=== PATIENT | male | born 1970 | race Caucasian/White ===

== ENCOUNTER 2020-02-05 07:49 | Inpatient (IN) | payer OTHER ==
[~2020-02-05] VITALS: Ht 170.2 cm; Wt 78.9 kg
--- NOTE | 2020-02-05 07:49 | NUR ---
PT BIB SELF C/O SI "RUN THROUGH TRAFFIC." PT IS AAOX4, NOT IN RESPIRATORY DISTRESS, V/S STABLE, KEPT RESTED AND COMFORTABLE. SITTER AT BEDSIDE. WILL CONTINUE TO MONITOR.
--- NOTE | 2020-02-05 08:00 | NUR ---
SEEN AND EXAMINED BY .
--- NOTE | 2020-02-05 08:03 | NUR ---
URINE SPECIMEN COLLECTED AND SENT TO LAB.
--- NOTE | 2020-02-05 08:10 | NUR ---
ER PHLEB AT BEDSIDE FOR BLOOD DRAW.
[2020-02-05 08:26] LABS: BASOPHILS % (AUTO) 0.6 % (0.0-2.0); EOSINOPHILS % (AUTO) 1.7 % (0.0-6.0); HEMATOCRIT 43 % (39-51); HEMOGLOBIN 14.9 g/dL (13.5-17.5); LYMPHOCYTES # (AUTO) 1.2 /CMM (0.8-4.8); LYMPHOCYTES % (AUTO) 29.5 % (20.0-44.0); MEAN CORPUSCULAR HGB CONC 34 g/dl (31.0-36.0); MEAN CORPUSCULAR VOLUME 94 fL (80-96); MONOCYTES # (AUTO) 0.2 /CMM (0.1-1.30); MONOCYTES % (AUTO) 5.3 % (2.0-12.0); NEUTROPHILS # (AUTO) 2.6 /CMM (1.8-8.9); NEUTROPHILS % (AUTO) 62.9 % (43.0-81.0); PLATELET COUNT (AUTO) 201 /CMM (150-450); RED BLOOD CELL COUNT(AUTO) 4.62 MIL/uL (4.5-6.0); WHITE BLOOD COUNT (AUTO) 4.2 K/uL (4.3-11.0)
[2020-02-05 08:33] LABS: CALCIUM, SERUM 8.5 mg/dL (8.5-10.1); CARBON DIOXIDE 30 mmol/L (21-32); CHLORIDE 105 mmol/L (98-107); CREATININE 0.7 mg/dL (0.6-1.3); GLUCOSE 86 mg/dL (74-106); POTASSIUM 3.9 mmol/L (3.5-5.1); SODIUM SERUM 140 mmol/L (136-145); UREA NITROGEN, BLOOD 12 mg/dL (7-18)
[2020-02-05 08:38] LABS: ALANINE AMINOTRANSFERASE 30 U/L (12-78); ALBUMIN 3.8 g/dL (3.4-5.0); ALCOHOL, BLOOD < 3 mg/dL (0-0); ALKALINE PHOSPHATASE 61 U/L (46-116); ASPARTATE AMINOTRANSFERASE 22 U/L (15-37); BILIRUBIN,DIRECT 0.2 mg/dL (0.0-0.2); BILIRUBIN,TOTAL 0.9 mg/dL (0.2-1.0); TOTAL PROTEIN, SERUM 6.8 g/dL (6.4-8.2)
[2020-02-05 08:40] LABS: ACETAMINOPHEN < 2 ug/ml (10-30); SALICYLATE < 2.8 mg/dL (2.8-20.0)
--- NOTE | 2020-02-05 08:49 | NUR ---
Riya WISE called for PET eval
--- NOTE | 2020-02-05 08:51 | NUR ---
COVID SWAB OBTAINED AND SENT TO LAB.
[2020-02-05 09:02] LABS: APPEARANCE,URINE CLEAR (CLEAR); BILIRUBIN,URINE NEGATIVE (NEGATIVE); BLOOD, URINE NEGATIVE Ery/uL (NEGATIVE); COLOR,URINE YELLOW (YELLOW); KETONES,URINE NEGATIVE (NEGATIVE); LEUKOCYTE ESTERASE ,URINE NEGATIVE (NEGATIVE); NITRITE, URINE NEGATIVE (NEGATIVE); PROTEIN,URINE NEGATIVE (NEGATIVE); UGLUCOSE NEGATIVE (NEGATIVE); UROBILINOGEN,URINE 0.2 EU/dL (0.2)
--- NOTE | 2020-02-05 09:04 | NUR ---
NOHELIA ETA 1 HOUR
--- NOTE | 2020-02-05 09:55 | NUR ---
FOOD TRAY PROVIDED.
--- NOTE | 2020-02-05 10:08 | NUR ---
NOHELIA WISE CRISIS TEAM AT BEDSIDE FOR EVAL.
--- NOTE | 2020-02-05 11:47 | NUR ---
SPOKED TO [facility] AWAITING INSURANCE AUTHORIZATION FOR GPS ADMISSION.
--- NOTE | 2020-02-05 12:14 | NUR ---
CALLED GPS RN NOT AVAILBLE WILL CALL BACK AFTER 10MINS.
--- NOTE | 2020-02-05 12:34 | NUR ---
REPORT GIVEN BILLIE SERRANO FOR KIRSTEN.
[2020-02-05 12:45] VITALS: BP 108/72
--- NOTE | 2020-02-05 12:45 | NUR ---
RN NOTE- ADMISSION NOTE/ PT IS A 49 Y/O MALE ADMITTED 5150 DTS FOR WANTING TO 'RUN INTO TRAFFIC' . PT W SCHIZOAFFECTIVE DISORDER AND LONG PAST HX OF PSYCHIATRIC HOSPITALIZATIONS (PT STATES "THIRTY YEARS OF THIS"). ON INITIAL FACE TO FACE ASSESSMENT, PT PRESENTS ANXIOUS, PACING IRRITABLE ORIENTED TO PERSON PLACE TIME THOUGH STATED SITUATION "I JUST WANT TO LIVE INSIDE FOREVER. I HATE THE OUTSIDE WORLD" PT GUARDED , PARANOID W POOR EYE CONTACT. MRSA CX TAKEN, MD ORDERS RECEIVED AND COMPLIED WITH. PHOTO TAKEN FOR CHART, SKIN CHECK COMPLETED AND CLEAR THROUGHOUT. VS- B/P- 108/72, HR-72, RR- 18, T- 97.7, SATURATION 97%RA. ACCU-CHECK -BS-98. ID [id number] APPLIED, PT RIGHTS PAMPHLET GIVEN, UNIT ORIENTATION COMPLETED. PT GIVEN KLONOPIN 0.5 MG FOR ANXIETY. LUNCH PROVIDED. CALM THERAPEUTIC ENVIRONMENT PROVIDED.
[2020-02-05] MEDS ORDERED: clonazePAM 0.5 MG TABLET PO PRN (13:00)
[2020-02-05] MEDS ORDERED: ACETAMINOPHEN 325 MG TABLET PO PRN (13:00)
[2020-02-05] MEDS ORDERED: MAG HYDROX/AL HYDROX/SIMETH 30 ML UDC PO PRN (13:00)
[2020-02-05] MEDS ORDERED: BLOOD SUGAR DIAGNOSTIC 1 EACH STRIP IN ONE (13:00)
[2020-02-05] MEDS ORDERED: MAGNESIUM HYDROXIDE 30 ML UDC PO PRN (13:00)
[2020-02-05] MEDS ORDERED: TEMAZEPAM 7.5 MG CAPSULE PO PRN (13:00)
--- NOTE | 2020-02-05 13:09 | NUR ---
RN NOTE- PT ADMITTED TO UNIT. PACING AGITATED. KLONOPIN 0.5 MG GIVEN
[2020-02-05 16:00] VITALS: BP_SYST 124; BP_SYST 148; BP_DIAS 74; BP_DIAS 75
[2020-02-05] MEDS: risperiDONE 1 MG TABLET PO SCH (17:44)
[2020-02-05] MEDS: ESCITALOPRAM OXALATE (10 MG) 10 MG TABLET PO SCH (17:44)
[2020-02-05 19:39] VITALS: BP 124/76
[2020-02-05] MEDS: clonazePAM 1 MG TABLET PO PRN (20:01)
--- NOTE | 2020-02-05 20:03 | NUR ---
GPS RN NOTES: ANXIOUS PT C/O OF FEELING ANXIOUS. VITALS CHECKED WNL. NO RESP DISTRESS. BREATHING EVEN AND UNLABORED. OFFERED KLONOPIN 1MG PO PRN ORDERED. PT AGREED AND TOLERATED MEDICATION WELL. CONTINUE TO MONITOR.
[2020-02-06 08:00] VITALS: BP 98/68
[2020-02-06] MEDS: ESCITALOPRAM OXALATE (10 MG) 10 MG TABLET PO SCH (08:46)
[2020-02-06] MEDS: risperiDONE 1 MG TABLET PO SCH ×2 (08:46→17:18)
--- NOTE | 2020-02-06 09:00 | NUR ---
RN-CO: KLONOPIN 1 MG PO GIVEN FOR C/O ANXIETY.
[2020-02-06] MEDS: clonazePAM 1 MG TABLET PO PRN ×2 (09:12→15:12)
--- NOTE | 2020-02-06 12:35 | NUR ---
Sober Living Placement Referral: SANDY faxed a referral to [facility] with attention to Kaushik to the fax number: [phone] for a sober living referral.
--- NOTE | 2020-02-06 14:25 | NUR ---
Family Contact: SANDY called pts sister, Melissa ([phone]), and discussed the pts many hospitalizations and his drug abuse. She stated that the pt cannot make decisions for himself as he is gravely disabled. She stated that the pt has been at [facility] and that he did not stay for more than one day. SANDY stated that she will discuss the discharge plan with the MD and keep the sister informed.
--- NOTE | 2020-02-06 14:29 | NUR ---
Initial Discharge Plan: Pt currently resides In [facility] located at [address] [place] [address]; ([phone]). Per pt, he would like to be discharged to a different sober living. SANDY will work with the pt and the MD regarding appropriate discharge planning. SW will form a safe and proper discharge.
--- NOTE | 2020-02-06 15:14 | NUR ---
RN-CO: KLONOPIN 1 MG PO GIVEN FOR C/O ANXIETY.
[2020-02-06 16:00] VITALS: BP 98/53
[2020-02-06 20:12] VITALS: BP 102/64
[2020-02-07 08:00] VITALS: BP 101/68
[2020-02-07] MEDS: ESCITALOPRAM OXALATE (10 MG) 10 MG TABLET PO SCH (09:14)
[2020-02-07] MEDS: risperiDONE 1 MG TABLET PO SCH ×2 (09:14→17:27)
[2020-02-07] MEDS: clonazePAM 1 MG TABLET PO PRN ×2 (10:00→17:27)
--- NOTE | 2020-02-07 10:00 | NUR ---
RN NOTE:KLONOPIN 1 MG PO GIVEN FOR C/O ANXIETY.WILL CONTINUE TO MONITOR.
[2020-02-07 16:00] VITALS: BP 95/62
--- NOTE | 2020-02-07 17:27 | NUR ---
RN NOTE :PATIENT C/O ANXIETY MEDICATED WITH KLONOPIN 1MG ,WILL CONTINUE TO MONITOR.
[2020-02-07 19:59] VITALS: BP 102/55
[2020-02-07] MEDS: TEMAZEPAM 15 MG CAPSULE PO PRN (21:11)
--- NOTE | 2020-02-07 21:11 | NUR ---
GPS-RN NOTE: INSOMNIA PATIENT C/O INABILITY TO SLEEP. ADMINISTERED RESTORIL 15MG PO ORDERED. WILL CONTINUE TO MONITOR.
[2020-02-08 08:00] VITALS: BP 110/68
[2020-02-08] MEDS: ESCITALOPRAM OXALATE (10 MG) 10 MG TABLET PO SCH (08:44)
[2020-02-08] MEDS: risperiDONE 1 MG TABLET PO SCH ×2 (08:44→17:11)
--- NOTE | 2020-02-08 11:20 | NUR ---
Substance Abuse Intervention: SANDY conducted a substance abuse intervention for the pt due to his recent methamphetamine use and his history with drug abuse on 02/07/20.
[2020-02-08] MEDS: clonazePAM 1 MG TABLET PO PRN (12:08)
[2020-02-08 16:00] VITALS: BP 99/61
[2020-02-08 19:40] VITALS: BP 90/50
[2020-02-09 08:00] VITALS: BP 99/64
[2020-02-09] MEDS: ESCITALOPRAM OXALATE (10 MG) 10 MG TABLET PO SCH (08:42)
[2020-02-09] MEDS: risperiDONE 1 MG TABLET PO SCH ×2 (08:42→16:41)
[2020-02-09] MEDS: clonazePAM 1 MG TABLET PO PRN ×2 (09:30→17:26)
--- NOTE | 2020-02-09 09:30 | NUR ---
rn notes administered klonopin 1 mg po prn for anxiety per patient request. v/s taken bp 100/64, p-84.
--- NOTE | 2020-02-09 10:41 | NUR ---
UR Note: SANDY called UR Web Content Specialist, Niyah ([phone], with [employer] and conducted a clinical on her voicemail for additional inpatient authorization for the AUTH#[id number].
--- NOTE | 2020-02-09 15:15 | NUR ---
UR Note: SANDY called UR Aerophysics Engineer, Niyah ([phone]), with [employer] and conducted an additional clinical on her voicemail for additional inpatient authorization for the AUTH#[id number].
[2020-02-09 16:00] VITALS: BP 106/59
--- NOTE | 2020-02-09 17:26 | NUR ---
rn notes administered Klonopin 1 mg po prn for anxiety per patient request, v/s taken bp 106/59, p75. continued monitoring.
[2020-02-09 20:26] VITALS: BP 101/51
[2020-02-10] MEDS: risperiDONE 1 MG TABLET PO SCH ×2 (07:52→17:19)
[2020-02-10] MEDS: ESCITALOPRAM OXALATE (10 MG) 10 MG TABLET PO SCH (07:52)
[2020-02-10 08:00] VITALS: BP 103/54
[2020-02-10 16:00] VITALS: BP 99/55
[2020-02-10 20:00] VITALS: BP 99/57
[2020-02-10] MEDS: TEMAZEPAM 15 MG CAPSULE PO PRN (21:07)
--- NOTE | 2020-02-10 21:07 | NUR ---
GPS RN NOTE: INSOMNIA PT. C/O UNABLE TO SLEEP. ADMINISTERED RESTORIL 15 MG PO PRN ORDERED. WILL CONTINUE TO MONITOR FOR SAFETY AND BEHAVIOR.
[2020-02-11] MEDS: risperiDONE 1 MG TABLET PO SCH ×2 (07:53→17:15)
[2020-02-11 08:00] VITALS: BP 99/56
[2020-02-11] MEDS: ESCITALOPRAM OXALATE (10 MG) 10 MG TABLET PO SCH (08:01)
[2020-02-11 16:00] VITALS: BP 97/56
[2020-02-11 20:35] VITALS: BP 102/58
[2020-02-11] MEDS: TEMAZEPAM 15 MG CAPSULE PO PRN (21:12)
[2020-02-11] MEDS: clonazePAM 1 MG TABLET PO PRN (22:20)
[2020-02-12 08:00] VITALS: BP 94/57
--- NOTE | 2020-02-12 09:15 | NUR ---
UR Note: UR Treasury Agent, Niyah ([phone]), with [employer] called the SW and left a message stating that the pt is authorized throughout the weekend and 02/12/20. She stated that if the pt does not discharge then a review will be due on 02/12/20 for authorization#[id number].
[2020-02-12] MEDS: risperiDONE 1 MG TABLET PO SCH ×2 (09:29→17:51)
[2020-02-12] MEDS: ESCITALOPRAM OXALATE (10 MG) 10 MG TABLET PO SCH (09:29)
[2020-02-12] MEDS: clonazePAM 1 MG TABLET PO PRN ×2 (10:24→20:33)
--- NOTE | 2020-02-12 15:34 | NUR ---
Family Contact: SW called pts sister, Melissa ([phone]), and informed her that the pt is going to be discharged the following day to [facility]. SW stated that the hospital will arrange his transportation there. Pts sister asked about whether or not his case investigator from the [facility] was aware and the SW stated that she was not aware that the pt had a case investigator. SW stated that she would call to find out.
--- NOTE | 2020-02-12 15:41 | NUR ---
[facility] Contact: SW called [facility] ([phone]) and inquired about whether or not the pt has a case packer and sealer or is connected to the [facility] program. SW was informed that the pt is not showing up on their records.
--- NOTE | 2020-02-12 15:45 | NUR ---
Family Contact: SW called pts sister, Melissa ([phone]), and stated that the [facility] program does not have the pt on file so the SW will refer him.
--- NOTE | 2020-02-12 15:55 | NUR ---
Independent Living Contact: SANDY contacted Kaushik from [facility] ([phone]) and stated that the pt will be discharged the following day. She stated that the pt can be taken to the bank once he arrives at the facility for receiving the payment. She stated that as long as the SW can transport the pt there the pt can arrive at whatever time.
[2020-02-12 16:00] VITALS: BP 90/59
--- NOTE | 2020-02-12 16:18 | NUR ---
[facility] Referral: SW faxed a referral to [facility] with attention to Raman Santiago to the fax number: [phone].
[2020-02-12 20:34] VITALS: BP 96/60
--- NOTE | 2020-02-12 20:35 | NUR ---
RN NOTES : ANXIETY PT. C/O FEELING ANXIOUS , KLONOPIN 1 MG PO PRN GIVEN PER PT. REQUEST , WILL CONTINUE TO MONITOR.
[2020-02-12] MEDS: TEMAZEPAM 15 MG CAPSULE PO PRN (22:10)
--- NOTE | 2020-02-12 22:14 | NUR ---
RN NOTES: INSOMNIA PT. C/O UNABLE TO SLEEP , RESTORIL 15 MG PRN PO , GIVEN PER PT. REQUEST, WILL CONTINUE TO MONITOR.
--- NOTE | 2020-02-13 07:30 | NUR ---
received pt. this am alert and oriented x3.no acute distress.vs stable.skin warm and dry.no complaints offered.
[2020-02-13 08:00] VITALS: BP 97/51
[2020-02-13] MEDS: ESCITALOPRAM OXALATE (10 MG) 10 MG TABLET PO SCH (09:03)
[2020-02-13] MEDS: risperiDONE 1 MG TABLET PO SCH (09:03)
--- NOTE | 2020-02-13 09:57 | NUR ---
Partial Program Referral: SANDY faxed a referral to [facility] with attention to Admissions to the fax number: [phone].
--- NOTE | 2020-02-13 09:57 | NUR ---
Independent Living Contact: SANDY faxed a COVID test result to [facility] with attention to Kaushik to the fax number: [phone].
--- NOTE | 2020-02-13 11:05 | NUR ---
made ready for discharge.all papers signed. denies suicidal,homicidal ideation as well as auditory hallucinations.given belongings and rx for psychotropic meds.taxi here for transport to independent living.escorted to lobby by nathaniel.
--- NOTE | 2020-02-13 14:30 | NUR ---
Discharge Note: Pt was discharged to [facility] [place] [address] [place] [address]; ([phone]). Pt was transported via taxi ($61) at 11AM. Pts sister, Melissa ([phone]), was made aware of the discharge. Upon discharge, the pt appeared to be in a euthymic mood and presented with a calm affect. Pt appeared to be alert and oriented x4 (time, place, self and situation). Pt denied both suicidal and homicidal ideation as well as auditory and visual hallucinations. Pt appeared ambulatory and well groomed. Pt was provided with substance abuse referrals upon discharge. Pt was referred to [facility] and an IOP program. Pts insurance company will be reaching out to the digital marketing manager of the [facility] with psychiatric referral. Pt was referred to [facility] from [facility]; Dr. [place] located at [address] [place] [address]; ; fax number: . Pt will be under the care of layaway clerk, Dr. Kavitha Thornton, [place] at [address] [place] [address]; .
--- NOTE | 2020-02-13 14:40 | NUR ---
UR Note: SANDY called UR State Trooper, Niyah ([phone]), with [employer] and conducted a discharge clinical on her voicemail for AUTH#[id number].
== END 2020-02-13 11:00 | disposition home or self-care (01) | DRG 885 ==
LOC: ER 07:57 → GPS 12:31
PROVIDERS: ADMIT Psychiatry & Neurology Psychiatry; ATTEND Internal Medicine
DX: F33.3 Major depressive disorder, recurrent, severe with psychotic symptoms (principal); R45.851 Suicidal ideations; F23 Brief psychotic disorder; F41.9 Anxiety disorder, unspecified; F29 Unspecified psychosis not due to a substance or known physiological condition; R53.1 Weakness; F19.10 Other psychoactive substance abuse, uncomplicated
CPT/HCPCS: 36415; 80048-TC; 80076-TC; 80305; 81000-TC; 82962-TC; 85025-TC; 87081-TC; G0480